=== PATIENT | female | born 1965 | race Caucasian/White ===

== ENCOUNTER 2017-10-07 22:06 | Emergency (ER) | payer OTHER ==
[~2017-10-07] VITALS: Ht 162.6 cm; Wt 63.5 kg
[~2017-10-07 22:06] MED LIST: ACYCLOVIR 400400 MG PO; AFRIN15 ML NS; AMOXICILLIN875 MG PO; BUTALB-ACETAMI1 EAC2; CEPHALEXIN 500500 M3 PO; CLEOCIN HCL150 MG PO; CLONAZEPAM 0.50.5 M1; CLONAZEPAM 0.50.5 M1 PO; CLONAZEPAM PO; CYCLOBENZAPRINE; DARVOCET-N 1001 EACH PO; DEPAKOTE 250MG250 M1 PO; DEPAKOTE ER500 MG; DIFLUCAN150 M1 PO; DOXYCYCLINE 10100 MG PO; ESKALITH300 MG PO; FIORICET 50-321 EACH; LEVAQUIN 500 M500 M4 PO; NORCO 5-325 TA1 EACH PO; PANTOPRAZOLE SO40 M1 PO; PENICILLIN VK250 MG PO; PENICILLIN VK500 M1 PO; PERCOCET 5-3251 EACH PO; PERCOCET 7.5-31 EACH PO; PHENERGAN 25 MG25 M1 PO; PREDNISONE50 MG PO; PROAIR HFA8.5 GM INH; PROPRANOLOL 4040 M1 PO; PROPRANOLOL 4040 MG; SEROQUEL 50 MG50 MG PO; SEROQUEL XR 30300 M1 PO; TESSALON PERLE100 MG PO; TRAMADOL 50 MG50 MG PO; ULTRAM 50MG TAB50 MG PO; VALIUM5 MG PO; XANAX 0.25 MG0.25 MG PO; XARELTO15 MG PO
[2017-10-07] MEDS ORDERED: KLONOPIN0.5 MG PO (22:23)
[2017-10-07] MEDS ORDERED: ZYRTEC10 M5 PO (22:24)
[2017-10-07] MEDS ORDERED: FLEXERIL PO (22:24)
[2017-10-07] MEDS ORDERED: PROTONIX 20 MG20 M1 PO (22:24)
[2017-10-07] MEDS ORDERED: GABAPENTIN 100100 MG (22:24)
[2017-10-07] MEDS ORDERED: MEDROLDOSEPACK PO (22:55)
[2017-10-07] MEDS ORDERED: ZOFRAN ODT4 MG PO (22:55)
[2017-10-07] MEDS ORDERED: VENTOLIN HFA 1818 GM INH (22:55)
[2017-10-07 23:28] VITALS: BP 115/88
== END 2017-10-07 23:29 | disposition home or self-care (01) ==
LOC: M.ERS 22:06
DX: J40 Bronchitis, not specified as acute or chronic (principal); G43.909 Migraine, unspecified, not intractable, without status migrainosus; F31.9 Bipolar disorder, unspecified; Z90.49 Acquired absence of other specified parts of digestive tract; Z90.710 Acquired absence of both cervix and uterus; Z98.890 Other specified postprocedural states; F17.210 Nicotine dependence, cigarettes, uncomplicated; Z88.0 Allergy status to penicillin; Z88.1 Allergy status to other antibiotic agents; Z88.5 Allergy status to narcotic agent